=== PATIENT | female | born 1965 | race Caucasian/White ===

== ENCOUNTER 2016-11-20 12:39 | Emergency (ER) | payer OTHER ==
[2016-11-20 13:36] LABS: #Basophils 0.1 thou/uL (0.0-0.2); #Eosinphils 0.3 thou/uL (0.0-0.7); #Lymphocytes 5.5 thou/uL (1.20-3.40); #Monocytes 0.5 thou/uL (0.11-0.59); #Neutrophils 6.5 thou/uL (1.40-6.50); %Eosinophils 2.5 % (0.0-10.0); %Lymphocytes 42.2 % (21.0-51.0); %Monocytes 4.2 % (0.0-10.0); %Neutrophils 50.1 % (42.0-75.0); Hemoglobin 14.1 g/dL (12.0-16.0); Mean Corpuscular HGB CONC 35.8 g/dL (32.0-36.0); Mean Corpuscular Hemoglobin 31.6 pg (27.0-31.0); Mean Corpuscular Volume 88.3 fl (81.0-99.0); Platelet Count 191 thou/uL (130-400); RBC Distribution Width 13.5 % (11.5-14.5); Red Blood Cell (RBC) Count 4.47 mill/uL (4.20-5.40); White Blood Cell (WBC) Count 12.9 thou/uL (4.8-10.8)
[2016-11-20 13:48] LABS: Hemoglobin A1c 5.5 % (4.0-6.0)
[2016-11-20 13:53] LABS: Bilirubin Negative (Negative); Blood, Urine Negative (Negative); Clarity Clear (Clear); Glucose, Urine (Dipstick) Negative (Negative); Leukocyte Negative (Negative); Nitrite Negative (Negative); Protein, Urine (Dipstick) Negative (Neg-Trace); Specific Gravity, Urine 1.015 (1.005-1.030); Urobilinogen 0.2 mg/dL (0.2-1.0)
[2016-11-20 13:53] LABS: ALT (SGPT) 53 U/L (0-55); AST (SGOT) 77 U/L (5-34); Albumin 4.6 g/dL (3.5-5.0); Alkaline Phosphatase 61 U/L (40-150); Anion Gap 15 mmol/L (10-20); BUN (Urea Nitrogen) 14 mg/dL (7.0-18.7); Bilirubin, Total 0.5 mg/dL (0.2-1.2); Calc. Creatinine Clearance 0 mL/min (70-130); Calcium 9.3 mg/dL (7.8-10.44); Carbon Dioxide 24 mmol/L (22-29); Chloride 102 mmol/L (98-107); Estimated GFR-MDRD 55; Globulin 2.8 g/dL (2.4-3.5); Glucose 108 mg/dL (70-105); Potassium 3.3 mmol/L (3.5-5.1); Protein, Total 7.4 g/dL (6.0-8.3); Sodium 138 mmol/L (136-145)
[2016-11-20 13:58] LABS: Bacteria/HPF Rare-Few HPF (None Seen); RBC/HPF 0-3 HPF (0-3); Squamous Epithelial 0-3 HPF (0-3); WBC/HPF 0-3 HPF (0-3)
--- NOTE | 2016-11-20 14:12 | CT ---
CT BRAIN WITHOUT CONTRAST: Date: 11/20/16 HISTORY: Dizziness. Sebaceous cyst on right side. FINDINGS: No evidence of acute infarct, hemorrhage, midline shift, or abnormal extra-axial fluid collections a re seen. The ventricular size is normal and the basilar cisterns are patent. The bony calvarium is i ntact. The visualized paranasal sinuses are well aerated. A large right-sided 6.5 cm sebaceous cyst is seen in the parietal region. IMPRESSION: No CT evidence of acute intracranial process. POS: [facility]
--- NOTE | 2016-11-20 14:31 | RAD ---
PORTABLE CHEST 1 VIEW: Date: 11/20/16 Time: 1357 hours HISTORY: Right-sided chest pain. FINDINGS: The heart is enlarged. The lungs are well expanded without focal areas of consolidation, pneumothora x, shane pulmonary edema, or pleural effusions. IMPRESSION: Cardiomegaly. POS: [facility]
[2016-11-20] MEDS ORDERED: Levothyroxine Sodium 100 MCG TAB PO SCH ×2 (15:45)
== END 2016-11-20 16:30 | disposition home or self-care (01) ==
LOC: MADERS 12:39
DX: E03.9 Hypothyroidism, unspecified (principal); I10 Essential (primary) hypertension; E78.5 Hyperlipidemia, unspecified; F32.9 Major depressive disorder, single episode, unspecified; F17.210 Nicotine dependence, cigarettes, uncomplicated
CPT/HCPCS: 36415; 70450; 71010; 80053; 81001; 83036; 83880; 84443; 85025; 86140; 87086

== ENCOUNTER 2017-09-19 18:20 | Emergency (ER) | payer OTHER ==
[2017-09-19] MEDS ORDERED: HyperTET 250 UNITS/ML 1 ML SYRINGE ONE (18:55)
[2017-09-19] MEDS ORDERED: Amoxicillin/Potassium Clav 875 MG TAB ONE (18:55)
[2017-09-19] MEDS ORDERED: Oseltamivir 75 MG CAP ONE (18:55)
[2017-09-19] MEDS ORDERED: Ibuprofen 800 MG TAB ONE (18:55)
== END 2017-09-19 19:00 | disposition home or self-care (01) ==
LOC: MADERS 18:20
DX: J11.1 Influenza due to unidentified influenza virus with other respiratory manifestations (principal); J20.9 Acute bronchitis, unspecified; E78.5 Hyperlipidemia, unspecified; E03.9 Hypothyroidism, unspecified; I10 Essential (primary) hypertension; F32.9 Major depressive disorder, single episode, unspecified; F17.210 Nicotine dependence, cigarettes, uncomplicated; Z79.899 Other long term (current) drug therapy
CPT/HCPCS: 99283; J1670